=== PATIENT | male | born 1965 | race Hispanic/Latino ===

== ENCOUNTER 2016-07-14 07:35 | Inpatient (IN) ==
[2016-07-14] MEDS ORDERED: NS 1,000 ML IV ONE ×2 (08:02→09:57)
[2016-07-14] MEDS ORDERED: ROCEPHIN 1 GM/NS 1 GM/50 ML IVPB IV ONE (08:03)
[2016-07-14 08:18] LABS: MANUAL DIFF NEEDED? NO
[2016-07-14 08:29] LABS: HEMATOCRIT 42.9 % (42.0-52.0); HEMOGLOBIN 14.4 g/dL (14.0-18.0); MCH 29.8 PG (27-31); MCHC 33.6 g/dL (33-37); MCV 88.8 FL (81-99); MPV 10.8 FL (7.4-10.4); PLT 146 X1000 (130-400); RBC 4.83 XMIL (4.7-6.1)
[2016-07-14 08:30] LABS: BASO% 0.2 % (0.0-0.8); EOS# 0.35 X1000 (0.0-0.7); EOS% 6.3 % (0.0-10.0); LYMPH# 1.16 X1000 (1.2-3.4); LYMPH% 20.7 % (20.5-51.1); MONO# 0.75 X1000 (0.11-0.59); MONO% 13.4 % (1.7-9.3); NEUT% 59.2 % (42.2-75.2)
[2016-07-14] MEDS ORDERED: NS 1,000 ML ONE (08:48)
[2016-07-14 08:51] LABS: AGAP 13; ALBUMIN 3.6 g/dL (3.5-5.0); ALKALINE PHOSPHATASE 65 U/L (32-122); BUN 14 mg/dL (8-22); CALCIUM 8.5 mg/dL (8.8-10.2); CHLORIDE 101 mmol/L (98-107); COSMO 275; GOT 36 U/L (10-34); GPT 28 U/L (10-44); POTASSIUM 3.2 mmol/L (3.5-5.1); SODIUM 137 mmol/L (136-145); TCO2 23 mmol/L (25-35); TOTAL PROTEIN 6.1 g/dL (6.3-8.3)
[2016-07-14] MEDS ORDERED: ZOFRAN IV PRN (09:57)
[2016-07-14] MEDS ORDERED: VANCOMYCIN 500 MG/NS 500 MG/100 ML IVPB IV ONE ×2 (09:59→23:00)
[2016-07-14] MEDS: TORADOL IV PRN (10:10)
--- NOTE | 2016-07-14 10:29 | PROVIDER DOCUMENTATION ---
This chart was entered by Ulises Hannon Scribe, acting as scribe for Lilian Franco MD. HPI-Rash/Wound/ReCheck - General Chief Complaint: Return/Recheck Stated Complaint: RETURN/RECHECK Time Seen by Provider: 07/14/16 07:58 Source: patient, family Allergies/Adverse Reactions: Allergies Allergy/AdvReac Type Severity Reaction Status Date / Time No Known Allergies Allergy Verified 07/14/16 07:51 Home Medications: Home Medication List Medication Instructions Recorded Confirmed Last Taken Type Hydrocodone/Acetaminophen [Lortab 1 each PO Q4-6H PRN PRN #20 tablet 02/15/12 Unknown Rx 7.5-500 Tablet] No Home Medications 02/15/12 02/15/12 Unknown History - History of Present Illness-Dermatology Nature of Presenting Problem: 51 yom Non azeri speaking pt presents to er for spider bite. Language line was used pt was bitten by a spider on thursday to right posterior leg came to er yesterday given medication and returned today because the pain is worse and the bite is getting worse. Location: reports: lower extremity Quality: reports: burning, itchy, painful Severity: reports: moderate Onset/Duration: reports: 2 days ago Timing: reports: still present, getting worse Context/Associated Symptoms: reports: spider bite Locality of Occurance: Home Similar Symptoms Previously?: No Recently seen or treated by another doctor?: Yes Review of Systems - Adult - REVIEW OF SYSTEMS - ADULT Constitutional: denies: chills, fever, fatique Eyes: reports: no symptoms reported Ears, Nose, Mouth & Throat: reports: no symptoms reported Cardiovascular: denies: chest pain, irregular heart rate, orthopnea, PND, syncope Respiratory: reports: no symptoms reported Gastrointestinal: reports: no symptoms reported Genitourinary: reports: no symptoms reported Musculoskeletal: reports: no symptoms reported Integumentary: reports: see HPI. denies: itching, mole changes, nail changes, skin thickening Neurological: reports: no symptoms reported Psychiatric: reports: no symptoms reported Endocrine: reports: no symptoms reported Hematologic/Lymphatic: reports: no symptoms reported Allergic/Immunologic: reports: no symptoms reported All Other Systems: Reviewed and Negative Past History - Adult - PAST MEDICAL HISTORY-ADULT Review of Records: reports: Nursing Assessment Review, Medications Reviewed Major Childhood Illnesses: reports: denies history Cardiovascular: reports: denies history - IMMUNIZATION STATUS Childhood Immunizations: See Nurse Assessment Flu Vaccine: See Nurse Assessment - FAMILY HISTORY Family History: reviewed, not pertinent - SOCIAL HISTORY Smoking: cigarettes Provider spent 3-5 mins advising pt. on dangers of tobacco.: Discussed manners to quit use, and f/u contacts for add'l counseling. Substance Use: alcohol Physical Exam-General - PHYSICAL EXAM-ADULT Initial Vital Signs Reviewed: Yes - CONSTITUTIONAL General Appearance: appears well, alert, no apparent distress - EYES Eyes: PERRL/EOMI - HEAD, EARS, NOSE, MOUTH & THROAT HENMT: moist mucous membranes - NECK Neck: non-tender, full range of motion, supple, normal inspection - RESPIRATORY Respiratory: chest non-tender, lungs clear, normal breath sounds, no pleuratic chest pain, no respiratory distress, no accessory muscle use - CARDIOVASCULAR Cardiovascular: regular rate, rhythm - GASTROINTESTINAL (ABDOMEN) Abdominal Exam: normal bowel sounds, non tender, soft, no organomegaly, no pulsatile mass - MUSCULOSKELETAL Extremity: normal range of motion, erythema, inflammation, tenderness - SKIN Integumentary: normal color, normal turgor, warm/dry, other (right posterior thigh erythema 8-10 cm centered with bright purple necrotic tissue) - PSYCHIATRIC Psych/Mental Status: normal thought content, normal thought process, oriented x 3 Progress - PLAN OF CARE/RESULTS Progress/Plan/Lab Results: Vital Signs - 8 hr 07/14/16 07:38 Temperature 98.3 F Pulse Rate 70 Respiratory Rate 18 Blood Pressure 100/64 O2 Sat by Pulse Oximetry 99 Laboratory Results - last 24 hr 07/14/16 07/14/16 08:16 08:16 WBC 5.60 RBC 4.83 Hgb 14.4 Hct 42.9 MCV 88.8 MCH 29.8 MCHC 33.6 RDW Std Deviation 13.1 Plt Count 146 MPV 10.8 H Neut % (Auto) 59.2 Lymph % (Auto) 20.7 [place] % (Auto) 13.4 H Eos % (Auto) 6.3 Baso % (Auto) 0.2 Neut # (Auto) 3.32 Lymph # (Auto) 1.16 L [place] # (Auto) 0.75 H Eos # (Auto) 0.35 Baso # (Auto) 0.01 Sodium 137 Potassium 3.2 L Chloride 101 Carbon Dioxide 23 L Anion Gap 13 BUN 14 Creatinine 0.7 BUN/Creatinine Ratio 20 Glucose 103 Calculated Osmolality 275 Calcium 8.5 L Total Bilirubin 0.60 AST 36 H ALT 28 Alkaline Phosphatase 65 Total Protein 6.1 L Albumin 3.6 Globulin 3.0 Albumin/Globulin Ratio 1.0 Orders Category Date Time Status NPO Diet 07/14/16 08:04 Active CBC WITH ELECTRONIC DIFF [HEME] Stat Lab 07/14/16 08:16 Completed CMP [COMPREHENSIVE METABOLIC PANEL] [CHEM] Stat Lab 07/14/16 08:16 Completed 0.9% Sodium Chloride Inj [Ns] 1,000 ml Med 07/14/16 08:48 Discontinued .ROUTE As Directed 0.9% Sodium Chloride Inj [Ns] 1,000 ml Med 07/14/16 08:02 Active IV 150 mls/hr CefTRIAXONE 1 GM/NS [Rocephin 1 gm/Ns] Med 07/14/16 08:03 Discontinued 1 gm in 50 ml IV NOW Transfer/Admit Order [TRANSFER] Routine Transfer 07/14/16 09:53 Ordered Pt agreed for admission intreprator language line. Result Diagrams: 07/14/16 08:16 07/14/16 08:16 - CONSULTS/PCP/HOSPITALIST Notification #1 *Consult/PCP/Hospitalist*: Time Discussed: 09:50 Consult Disposition: Admit Departure - Departure Time of Disposition Decision: 09:50 DIAGNOSIS: Brown recluse spider bite, Cellulitis Disposition: ADMITTED INPATIENT 09 Certified Medical Emergency: Emergent Condition: Stable Referrals and Follow-Ups: None,PCP [Primary Care Provider] - This chart was documented by the indicated scribe, (Ulises Hannon Scribe) and accurately reflects the services I performed and decisions made by me, Lilian Franco MD, as attested by the provider's signature.
--- NOTE | 2016-07-14 17:38 | HISTORY AND PHYSICAL ---
CHIEF COMPLAINT: Spider bite Thursday. HISTORY OF PRESENT ILLNESS: This is a 51-year-old, male, who presented to the emergency room on it looks like maybe July 12 or complaining of a spider bite to the posterior right thigh. The patient was given medication and told to return to the emergency room for recheck if he had recurrent change in symptoms. The patient return today stating that the pain is worse and a bite was getting worse, that it was itching and burning all over. Labs were drawn and he had a WBC of 5.6. He was afebrile. He denies any subjective fever. In the emergency room he was given 500 mg of vancomycin, a gram of Rocephin and admitted for further evaluation and treatment. PAST MEDICAL HISTORY: He denies. PAST SURGICAL HISTORY: Denies. SOCIAL HISTORY: Denies alcohol, tobacco, or illicit drug use. He does speak Ghanaian, and he per the felt finisher stated he does not read or write. ALLERGIES: No known drug allergies. HOME MEDICATIONS: Lortab 7.5 q.4-6 hours p.r.n. REVIEW OF SYSTEMS: A 14 point review of systems is discussed with the patient per felt finisher. Positives per the HPI. He denies chest pain, palpitations, syncope, dizziness, nausea, vomiting, diarrhea, constipation, black or bloody vomitus, black or bloody stools, hematuria, dysuria, frequency, urgency. PHYSICAL EXAMINATION: GENERAL: This is a 51-year-old, male, who is sitting up in the bed in no distress. HEENT: Head is normocephalic, atraumatic. Pupils equal, round, react to light. EOMs are intact. Sclerae anicteric. Mucous membranes moist. NECK: Supple. Trachea midline. CARDIOVASCULAR: Regular rate and rhythm. S1, S2 appreciated. PULMONARY: Breath sounds are clear. No increased work of breathing noted. GASTROINTESTINAL: Abdomen is soft, nontender, nondistended with bowel sounds in all 4 quadrants. BACK: No CVAT. No spine tenderness. MUSCULOSKELETAL: Good range of motion of joints. SKIN: Warm and dry with about a quarter-sized necrotic area noted to the posterior thigh with surrounding erythema about 8-10 cm. This is marked per the ER. There is no drainage. DIAGNOSTICS: WBC is 5.6 with hemoglobin 14.4, hematocrit 42.9. Platelets of 146,000. Sodium is 137, potassium 3.2, BUN 14. Creatinine 0.7 with a glucose of 103. ASSESSMENT: 1. Likely spider bite. 2. Cellulitis, right thigh. PLAN: The patient will be admitted to the hospital. He was given Rocephin and vancomycin in the emergency room. We will continue these. We will monitor site. If needed, General Surgery will be consulted. We will re-evaluate in the morning. Further treatments pending hospital course. Dictated by BROOKLYNN Womack for Macho Cole MD cc: BROOKLYNN Womack MD MTDD
[2016-07-14] MEDS ORDERED: NS 100 ML IV SCH (20:00)
[2016-07-14] MEDS ORDERED: VANCOMYCIN IV PER PHARMACY MISC SCH (20:00)
[2016-07-14] MEDS ORDERED: VANCOMYCIN 1 GM/NS 1 GM/250 ML IVPB IV ONE (22:00)
[2016-07-14] MEDS: BENADRYL PO PRN (22:16)
[2016-07-15] MEDS: TORADOL IV PRN (01:12)
[2016-07-15] MEDS ORDERED: ROCEPHIN 1 GM/NS 1 GM/50 ML IVPB IV SCH (08:00)
--- NOTE | 2016-07-15 08:56 | PROGRESS NOTE ---
DATE: 07/15/2016 SUBJECTIVE: The patient unfortunately does not speaking Maldivian. However, he does note the pain in his right thigh is poquito today versus mas yesterday. PHYSICAL EXAMINATION: Vital Signs: Temperature 98, pulse 57, respiratory rate 18, BP 103/63, saturation 99% on room air. General: Patient is awake, alert, and in no distress. HEENT: Normocephalic. Neck: Supple. CV: Regular rate. Chest: Relatively clear. ASSESSMENT: 1. Cellulitis of the right thigh. 2. Likely spider bite. PLAN: We will continue vancomycin and Rocephin. We will ask surgery to evaluate for possible debridement. cc: Macho Cole MD
[2016-07-15] MEDS ORDERED: VANCOMYCIN 1,500 MG in NS 250 ML IV SCH (16:00)
[2016-07-15] MEDS: BENADRYL PO PRN (20:17)
[2016-07-16] MEDS ORDERED: SOLU-MEDROL IV ONE (07:51)
[2016-07-16] MEDS ORDERED: SODIUM CHLORIDE 0.9% INJ ONE (07:55)
[2016-07-16] MEDS ORDERED: PEPCID IV ONE (07:55)
--- NOTE | 2016-07-16 08:07 | PROGRESS NOTE ---
DATE: 07/16/2016 SUBJECTIVE: The patient unfortunately does not speak Swedish. He notes that he has a rash on his legs. OBJECTIVE: Vital Signs: Reviewed. Temperature 97 degrees, pulse 63, respiratory rate 18, BP 106/68, saturation 97% on room air. General: Patient is well developed. HEENT: Normocephalic. Neck: Supple. CV: Regular rate. Chest: Relatively clear. Abdomen: Soft. Extremities: Moves all extremities. Skin: The eschar has been removed over his right thigh. He has a smaller but still blackish area. However, he currently has a slightly raised, erythematous rash over bilateral lower extremities and extending into his abdomen. ASSESSMENT: 1. Cellulitis. 2. Erythematous rash. PLAN: Uncertain if this is a rash secondary to possibly tick bite. We will start him on p.o. doxycycline. Certainly could be the beginning of Red Man syndrome from his vancomycin; therefore, will stop them. Also will stop his Rocephin as we are unclear if this is an allergy versus drug reaction versus worsening of his current infection. cc: Macho Cole MD
[2016-07-16] MEDS: BENADRYL PO SCH ×2 (08:28→20:38)
[2016-07-16] MEDS: DOXYCYCLINE PO SCH ×2 (08:28→20:38)
[2016-07-16] MEDS: PEPCID PO SCH (20:38)
[2016-07-17] MEDS: BENADRYL PO SCH ×2 (09:16→20:29)
[2016-07-17] MEDS: PEPCID PO SCH ×2 (09:16→20:29)
[2016-07-17] MEDS: DOXYCYCLINE PO SCH ×2 (09:16→20:29)
[2016-07-17 16:50] VITALS: BP 106/67
--- NOTE | 2016-07-18 21:49 | DISCHARGE SUMMARY ---
ADMISSION DATE: 07/14/2016 DISCHARGE DATE: 07/17/2016 DIAGNOSES: 1. Cellulitis of the right thigh. 2. Presumed brown recluse spider bite. 3. Erythematous rash resolved. HOSPITAL COURSE: The patient presented to the emergency room on the date of admission for recheck of cellulitis to his posterior right thigh. On recheck it was found to be worsening, therefore, he was admitted. He was treated with vancomycin and Rocephin. On day 2 he developed what appeared to be red man syndrome, therefore, vancomycin was discontinued and Rocephin was discontinued in case this was a reaction. The patient does not speak Irish. There was even difficulty speaking with him through the language line. When family members were present it was found that there was a question of this actually being a brown recluse bite. In case this rash was secondary to a tick bite he was started on doxycycline which he did tolerate well. Tick titers were drawn and they are pending. On the day of discharge his right thigh redness was gone, pain had subsided. He stated he was back to his normal state of health. DISCHARGE PHYSICAL EXAMINATION: Cardiovascular: Regular rate and rhythm. S1, S2 appreciated. Pulmonary: Breath sounds clear. No increased work of breathing noted. Gastrointestinal: Abdomen is soft, nontender, nondistended. Bowel sounds in all 4 quadrants. DISCHARGE MEDICATIONS: 1. Doxycycline 100 mg p.o. b.i.d. for 2 weeks. 2. He may continue his [place] 7.5 that he was given in the emergency room on a prior visit if needed. FOLLOWUP: He is to follow up with Dr. Rodney Min in 2 weeks [facility]. At that time he will be evaluated and the need for further antibiotics will be decided, and outstanding labs can be reviewed. DISCHARGE VITAL SIGNS: Blood pressure 106/67 with heart rate of 64, respirations are 18, temperature is 98 degrees with room air saturations 96-98%. CONDITION AT DISCHARGE: He is being discharged home in stable condition with family members. TIME SPENT ON DISCHARGE: 33 minutes. Dictated by BROOKLYNN Womack for Macho Cole MD cc: BROOKLYNN Womack MD
== END 2016-07-17 20:40 | disposition home or self-care (01) ==
LOC: P.ED 07:35 → P.MEDSURG 07:35 → OBSVTOIN 10:42
PROVIDERS: ATTEND Family Medicine